=== PATIENT | male | born 1960 | race African-American/Black ===

== ENCOUNTER 2016-08-17 06:36 | Day surgery (SDC) | payer OTHER ==
[~2016-08-17] VITALS: Ht 182.9 cm; Wt 107.0 kg
[~2016-08-17 06:36] MED LIST: ATEN-51 PO; HYDR-762 PO; IBUP-1542 PO
[2016-08-17] MEDS ORDERED: AMLO-147 PO (07:42)
[2016-08-17] MEDS ORDERED: PROPOFOL 20 ML ONE (07:55)
[2016-08-17] MEDS ORDERED: MIDAZOLAM 1 MG/ML 2 ML INJ ONE ×2 (07:55)
[2016-08-17] MEDS ORDERED: FENTAnyl 50 MCG/ML VIAL ONE (07:55)
[2016-08-17 07:56] VITALS: BP 173/109; PULSE 89; RESP 13
[2016-08-17 08:55] VITALS: BP 140/98; PULSE 81; RESP 16
--- NOTE | 2016-08-17 11:48 | GILP ---
DATE OF PROCEDURE: NAME OF PROCEDURE: Colonoscopy. SURGEON: Kelsey De Santiago MD PREOPERATIVE DIAGNOSIS: Positive occult blood in stool. POSTOPERATIVE DIAGNOSES 1. Colonoscopy all the way to the cecum. 2. Internal hemorrhoids. 3. No colon neoplasm was identified. INDICATION FOR THE PROCEDURE: Mr. Greg Ramirez is a 56-year-old male patient who was scheduled f or colonoscopy for the evaluation of positive occult blood in stool. The procedure and possible complications were well explained to the patient, he understood and conse nted to the procedure. DESCRIPTION OF PROCEDURE: Under the influence of anesthesia, the colonoscope was carefully introduc ed in the rectum and under direct vision, it was advanced all the way to the cecum. FINDINGS: The patient had internal hemorrhoids. No colitis or neoplasm was identified. He tolerated the procedure very well and there was no complication from the procedure. At the end o f the procedure, he was awake with stable vital signs and he was discharged home to the care of his family. IMPRESSION: 1. Colonoscopy all the way to the cecum. 2. Internal hemorrhoids. 3. No colon neoplasm was identified. 4. Next screening colonoscopy in 10 years. Dictated By: KELSEY LEE/BERTO Conf#: [id number] DID#: [id number]
== END 2016-08-17 09:00 | disposition home or self-care (01) ==
LOC: GIL 06:36
PROVIDERS: ATTEND Internal Medicine Gastroenterology
DX: K92.1 Melena (principal); K64.8 Other hemorrhoids; E66.9 Obesity, unspecified; Z68.32 Body mass index [BMI] 32.0-32.9, adult; I10 Essential (primary) hypertension
CPT/HCPCS: 45378; J2250; J3010; Z7610

== ENCOUNTER 2018-10-02 10:42 | Emergency (ER) | payer SELFPAY ==
[~2018-10-02] VITALS: Ht 182.9 cm; Wt 117.4 kg
[~2018-10-02 10:42] MED LIST changes: +AMLO-147 PO; -ATEN-51 PO; -HYDR-762 PO
[2018-10-02 10:48] VITALS: BP 176/102; PULSE 100; RESP 20; Ht 182.9 cm; Wt 117.4 kg
== END 2018-10-02 13:15 | disposition left against medical advice (07) ==
LOC: E/R 10:42
DX: Z53.21 Procedure and treatment not carried out due to patient leaving prior to being seen by health care provider (principal)